=== PATIENT | male | born 1950 | race Caucasian/White ===

== ENCOUNTER 2016-09-24 16:39 | Observation (INO) | payer BC ==
[~2016-09-24] VITALS: Ht 182.9 cm; Wt 87.7 kg
[~2016-09-24 16:39] MED LIST: CEPH500C PO; CRAMP; HYDR12.58 PO; MELO-156 PO; OMEP20CA9 PO
--- NOTE | 2016-09-24 16:44 | PHYS DOC ---
Adult General Chief Complaint Chief Complaint: OTHER COMPLAINTS HPI HPI Patient is a 65 year old -[place] male who presents with abnormal EKG. According to patient he has a history of hypertension and diabetes with a family history of premature coronary disease in his 2 sisters and one of his parents. Approximately 1 week ago was mowing his yard had right substernal pressure that lasted about an hour and then resolved on its own. He was at his primary care office today and had an EKG done that showed ST elevations in V2, V3, V4 V5 and V6 in addition to 1 and aVL. He denies any chest pain shortness of breath nausea vomiting currently. He states he's had a similar episode 5 years ago before procedure with has postponed procedure due to stress test because of an EKG abnormality. Review of Systems Review of Systems Constitutional: Denies fever or chills [] Eyes: Denies change in visual acuity, redness, or eye pain [] HENT: Denies nasal congestion or sore throat [] Respiratory: Denies cough or shortness of breath [] Cardiovascular: No additional information not addressed in HPI [] GI: Denies abdominal pain, nausea, vomiting, bloody stools or diarrhea [] : Denies dysuria or hematuria [] Musculoskeletal: Denies back pain or joint pain [] Integument: Denies rash or skin lesions [] Neurologic: Denies headache, focal weakness or sensory changes [] Endocrine: Denies polyuria or polydipsia [] Current Medications Current Medications Current Medications Medications (Trade) Dose Ordered Sig/Noah Start Time Stop Time Status Last Admin Dose Admin Aspirin (Children'S Aspirin) 324 mg 1X ONCE 09/24/16 17:00 09/24/16 17:01 DC 09/24/16 17:05 324 MG Morphine Sulfate 2 mg PRN Q2HR PRN 09/24/16 19:00 09/25/16 18:59 UNV Nitroglycerin (Nitrostat) 0.4 mg PRN Q5MIN PRN 09/24/16 17:00 09/25/16 16:59 Ondansetron HCl (Zofran) 4 mg PRN Q8HRS PRN 09/24/16 19:00 09/25/16 18:59 UNV Allergies Allergies Allergies Coded Allergies Type Severity Reaction Last Updated Verified No Known Drug Allergies 03/12/14 No Physical Exam Physical Exam Constitutional: Well developed, well nourished, no acute distress, non-toxic appearance. [] HENT: Normocephalic, atraumatic, bilateral external ears normal, oropharynx moist, no oral exudates, nose normal. [] Eyes: PERRLA, EOMI, conjunctiva normal, no discharge. [] Neck: Normal range of motion, no tenderness, supple, no stridor. [] Cardiovascular:Heart rate regular rhythm, no murmur [] Lungs & Thorax: Bilateral breath sounds clear to auscultation [] Abdomen: Bowel sounds normal, soft, no tenderness, no masses, no pulsatile masses. [] Skin: Warm, dry, no erythema, no rash. [] Back: No tenderness, no CVA tenderness. [] Extremities: No tenderness, no cyanosis, no clubbing, ROM intact, no edema. [] Neurologic: Alert and oriented X 3, normal motor function, normal sensory function, no focal deficits noted. [] Psychologic: Affect normal, judgement normal, mood normal. [] Current Patient Data Vital Signs Vital Signs Date Time Temp Pulse Resp B/P Pulse Ox O2 Delivery O2 Flow Rate FiO2 09/24/16 17:49 72 139/88 98 Room Air 09/24/16 16:43 97.9 18 97.9 Lab Values Laboratory Tests Test 09/24/16 16:45 09/24/16 17:18 White Blood Count 5.3x10^3/uL (4.0-11.0) Red Blood Count 5.09x10^6/uL (4.30-5.70) Hemoglobin 15.2g/dL (13.0-17.5) Hematocrit 44.7% (39.0-53.0) Mean Corpuscular Volume 88fL (79-100) Mean Corpuscular Hemoglobin 30pg (25-35) Mean Corpuscular Hemoglobin Concent 34g/dL (31-37) Red Cell Distribution Width 13.4% (11.5-14.5) Platelet Count 197x10^3/uL (140-400) Neutrophils (%) (Auto) 47% (31-73) Lymphocytes (%) (Auto) 38% (24-48) Monocytes (%) (Auto) 11% (0-9) H Eosinophils (%) (Auto) 3% (0-3) Basophils (%) (Auto) 1% (0-3) Neutrophils # (Auto) 2.5x10^3uL (1.8-7.7) Lymphocytes # (Auto) 2.0x10^3/uL (1.0-4.8) Monocytes # (Auto) 0.6x10^3/uL (0.0-1.1) Eosinophils # (Auto) 0.2x10^3/uL (0.0-0.7) Basophils # (Auto) 0.0x10^3/uL (0.0-0.2) Prothrombin Time 11.8SEC (11.7-14.0) Prothrombin Time INR 0.9 (0.8-1.1) Sodium Level 137mmol/L (136-145) Potassium Level 3.6mmol/L (3.5-5.1) Chloride Level 102mmol/L (98-107) Carbon Dioxide Level 30mmol/L (21-32) Anion Gap 5 (6-14) L Blood Urea Nitrogen 16mg/dL (8-26) Creatinine 1.0mg/dL (0.7-1.3) Estimated GFR (Cockcroft-Gault) 75.2 Glucose Level 93mg/dL (70-99) Calcium Level 9.4mg/dL (8.5-10.1) Magnesium Level 1.8mg/dL (1.8-2.4) Total Bilirubin 0.3mg/dL (0.2-1.0) Direct Bilirubin 0.1mg/dL (0.0-0.2) Aspartate Amino Transferase (AST) 23U/L (15-37) Alanine Aminotransferase (ALT) 31U/L (16-63) Alkaline Phosphatase 52U/L (46-116) Creatine Kinase 151U/L (39-308) Creatine Kinase MB (Mass) 1.8ng/mL (0.0-3.6) Creatine Kinase MB Relative Index 1.2% (0-4) Troponin I Quantitative < 0.017ng/mL (0.000-0.055) HQ-Ttm-V-Type Natriuretic Peptide 57pg/mL (0-124) Total Protein 7.7g/dL (6.4-8.2) Albumin 4.1g/dL (3.4-5.0) Lipase 165U/L (73-393) Thyroid Stimulating Hormone (TSH) 3.880uIU/mL (0.358-3.74) H Urine Collection Type Unknown Urine Color Yellow Urine Clarity Clear Urine pH 6.5 Urine Specific [place] 1.015 Urine Protein Negativemg/dL (NEG-TRACE) Urine Glucose (UA) Negativemg/dL (NEG) Urine Ketones (Stick) Negativemg/dL (NEG) Urine Blood Negative (NEG) Urine Nitrite Negative (NEG) Urine Bilirubin Negative (NEG) Urine Urobilinogen Dipstick 1.0mg/dL (0.2 mg/dL) Urine Leukocyte Esterase Negative (NEG) Urine RBC 0/HPF (0-2) Urine WBC 0/HPF (0-4) Urine Squamous Epithelial Cells Occ/LPF Urine Bacteria 0/HPF (0-FEW) Urine Mucus Slight/LPF Urine Opiates Screen Neg (NEG) Urine Methadone Screen Neg (NEG) Urine Barbiturates Neg (NEG) Urine Phencyclidine Screen Neg (NEG) Urine Amphetamine/Methamphetamine Neg (NEG) Urine Benzodiazepines Screen Neg (NEG) Urine Cocaine Screen Neg (NEG) Urine Cannabinoids Screen Neg (NEG) Urine Ethyl Alcohol Neg (NEG) Laboratory Tests 09/24/16 16:45 Laboratory Tests 09/24/16 16:45 EKG EKG EKG shows sinus rhythm with rate 75 bpm with mild elevations in 1 and aVL, no T- wave inversions appreciated, and axis deviation, QTC 398 ms, as interpreted by me. Radiology/Procedures Radiology/Procedures View chest x-ray did not show any focal consolidations, bony abnormalities, pneumothorax, as interpreted by me. Impressions: Abnormal EKG Course & Med Decision Making Course & Med Decision Making Pertinent Labs and Imaging studies reviewed. (See chart for details) He has a worrisome EKG that has changed from Dr. De Los Santos's office to the ER. He did have chest discomfort when he was mowing his yard several days ago he denies any discomfort or pain currently however he needs to have a cardiology consultation and a stress test. He has 2 sisters he's had coronary disease recently in addition to his parents. He is agreeable plan be admitted to Dr. Aguirre with cardiology consultation. He was given a full dose aspirin. Dragon Disclaimer Dragon Disclaimer This electronic medical record was generated, in whole or in part, using a voice recognition dictation system. Departure Departure Impression: Primary Impression: Abnormal EKG Disposition: ADMITTED INPATIENT Admitting Physician: Myra Aguirre Condition: STABLE BERNADETTE BARTON MD Sep 24, 2016 16:44
[2016-09-24 16:55] LABS: BASO % 1 % (0-3); EOS % 3 % (0-3); HEMATOCRIT 44.7 % (39.0-53.0); HEMOGLOBIN 15.2 g/dL (13.0-17.5); LYMPH % 38 % (24-48); MEAN CORPUSCULAR HEMOGLOBIN 30 pg (25-35); MEAN CORPUSCULAR HGB CONC 34 g/dL (31-37); MEAN CORPUSCULAR VOLUME 88 fL (79-100); MONO % 11 % (0-9); NEUT % 47 % (31-73); PLATELET COUNT 197 x10^3/uL (140-400); RED BLOOD COUNT 5.09 x10^6/uL (4.30-5.70); RED CELL DISTRIBUTION WIDTH 13.4 % (11.5-14.5); WHITE BLOOD COUNT 5.3 x10^3/uL (4.0-11.0)
[2016-09-24] MEDS ORDERED: ASPIRIN CHEWABLE 81 MG TABLET. PO ONE (17:00)
[2016-09-24] MEDS ORDERED: NITROGLYCERIN SUBLINGUAL 0.4 MG BOTTLE OF 25. SL PRN (17:00)
[2016-09-24] MEDS ORDERED: MORPHINE SULFATE 2 MG/ML DISP.SYRIN. IV/SQ PRN (17:00)
[2016-09-24 17:05] LABS: INR 0.9 (0.8-1.1); PROTHROMBIN TIME PATIENT 11.8 SEC (11.7-14.0)
[2016-09-24 17:11] LABS: CALCIUM 9.4 mg/dL (8.5-10.1); GFR 75.2; POTASSIUM 3.6 mmol/L (3.5-5.1)
[2016-09-24 17:18] LABS: ALBUMIN 4.1 g/dL (3.4-5.0); DIRECT BILIRUBIN 0.1 mg/dL (0.0-0.2); MAGNESIUM 1.8 mg/dL (1.8-2.4); TOTAL BILIRUBIN 0.3 mg/dL (0.2-1.0); TOTAL PROTEIN 7.7 g/dL (6.4-8.2)
[2016-09-24 17:25] LABS: BILIRUBIN,URINE NEGATIVE (NEG); GLUCOSE,URINE NEGATIVE (NEG); NITRITE,URINE NEGATIVE (NEG); PH,URINE 6.5; PROTEIN,URINE NEGATIVE (NEG-TRACE)
[2016-09-24 17:26] LABS: CKMB INDEX 1.2 % (0-4); CKMB MASS 1.8 ng/mL (0.0-3.6)
[2016-09-24 17:37] LABS: BACTERIA,URINE 0 /HPF (0-FEW); RBC,URINE 0 /HPF (0-2); SQUAMOUS EPITHELIAL CELL,UR OCC /LPF; WBC,URINE 0 /HPF (0-4)
[2016-09-24 17:43] LABS: BARBITURATES NEG (NEG); BENZODIAZEPINES NEG (NEG); CANNABINOIDS NEG (NEG); COCAINE NEG (NEG); ETHANOL, URINE NEG (NEG); METHADONE NEG (NEG); OPIATES NEG (NEG); PHENCYCLIDINE NEG (NEG)
[2016-09-24] MEDS ORDERED: MORPHINE SULFATE 2 MG/ML DISP.SYRIN. IV PRN (19:00)
[2016-09-24] MEDS ORDERED: ONDANSETRON PF 4 MG/2 ML VIAL. IV PRN (19:00)
--- NOTE | 2016-09-24 19:19 | ACF ---
Admission Forms Criteria CARDIOLOGY GRG Clinical Indications for Admission to Inpatient Care ( Place 'X' for any and all applicable criteria): Hospital admission is needed for appropriate care of the patient because of ANY ONE of the following (1): [ ] I. Hemodynamic instability as indicated by ALL of the following (1)(2)(3) (4)(5) [ ]a) Vital signs or other findings not as expected for chronic patient condition or baseline [ ]b) Instability indicated by ANY ONE of the following: [ ]i) Hypotension [ ]ii) Symptomatic Tachycardia unresponsive to treatment ( e.g., analgesia, fluids, sedation as indicated) [ ]iii) Inadequate perfusion indicated by ANY ONE of the following: [ ] 1) Lactic acidosis (> 2 mmol/L) [ ] 2) New abnormal capillary refill (> 3 seconds) [ ] 3) Reduced urine output [ ] 4) New altered mental status [ ]iv) Orthostatic vital sign changes unresponsive to treatment (e.g., fluids) [ ]v) IV inotropic or vasopressor medication required to maintain adequate blood pressure or perfusion [ ] II. Severe heart failure as indicated by ANY ONE of the following(17)(18) [ ]a) Respiratory distress [ ]b) Hypotension [ ]c) Anasarca (refractory to outpatient therapy) [ ]d) Cardiac arrhythmias of immediate concern [ ]e) Myocardial ischemia [ ] III. Cardiac arrhythmias or findings of immediate concern indicated by ANY ONE of the following (19)(20): [ ] a) Heart rhythms that are inherently dangerous or unstable indicated by ANY ONE of the following (21)(22)(23): [ ] i) Resuscitated ventricular fibrillation or cardiac arrest [ ] ii) Ventricular escape rhythm [ ] iii) Sustained ventricular tachycardia (30 seconds or more of ventricular rhythm at greater than 100 beats per minute) [ ] iv) Nonsustained ventricular tachycardia and ANY ONE of the following: [ ] 1) Suspected cardiac ischemia as cause or consequence of ventricular tachycardia [ ] 2) In setting of acute myocarditis [ ] b) Unstable cardiac conduction defects indicated by ANY ONE of the following(23)(24)(25) [ ] i) Type II second-degree atrioventricular block [ ]ii) Third-degree atrioventricular block [ ]iii) New-onset left bundle branch block with suspected myocardial ischemia [ ]c) Any heart rhythm and ANY ONE of the following (21)(22)(26)(27) (28) [ ] i) Continuous long-term ECG monitoring needed (e.g., initiation of drug requiring monitoring for more than 24 hours) [ ] ii) Patient has automatic implanted cardioverter defibrillator that is repeatedly firing, malfunctioning, or in need of immediate adjustment of settings beyond the scope of ambulatory or observation care [ ]d) Heart rhythms of concern due to ANY ONE of the following: [ ] i) Hypotension [ ] ii) Respiratory distress [ ] iii) Association with other significant symptoms (e.g., bradycardia with syncope or ongoing dizziness, supraventricular tachycardia with chest pain (14)(15)(17) [ ] IV. Monitoring for cardiac contusion beyond the scope of observation care needed [A](30)(31)(32) [ ] V. Surgical or device complication (e.g., valve replacement complication , pacemaker dysfunction) (35)(41)(44)(45)(46) [ ] . Inpatient palliative care needed. [B](49) Also use Inpatient Palliative Care Criteria [ ] VII. Nonbacterial thrombotic (marantic) endocarditis (36)(43)(47)(48) [X] VIII. Cardiology condition, symptom, or finding for which emergency and observation care has failed or are not considered appropriate. [ ] IX. Acute valvular disease requiring inpatient as indicated by ANY ONE of the following (41) [ ]a) Acute valvular regurgitation (42) [ ]b) Noninfectious valvulitis (43) [ ]c) Obstructive valve thrombosis [ ]d) Paravalvular leak [ ]e) Other significant valvular disorder remaining after emergency or observation level of care (as appropriate) [ ]X. Pericardial disease requiring inpatient treatment as indicated by ANY ONE of the following (33)(34)(35)(36)(37) [ ]a) Suspected tamponade (38)(39)(40) [ ]b) Hemopericardium [ ]c) Other significant pericardial disorder remaining after emergency or observation level of care (as appropriate) [ ] XI. Cardiac ischemia beyond scope of emergency and observation care. [ ] XII. Hypertension requiring inpatient treatment as indicated by ANY ONE of the following (6)(7)(8) [ ]a) SBP greater than 220 mm Hg or DBP greater than 120 mmHg despite treatment [ ]b) SBP greater than 140 mm Hg or DBP greater than 100 mm Hg with evidence of acute end organ damage as indicated by ANY ONE of the following [ ] i) Encephalopathy [ ] ii) Acute renal failure as indicated by new onset of ANY ONE of the following (9)(10)(11)(12)(13) [ ]1) 3-fold rise in serum creatinine from baseline [ ]2) Serum creatinine greater than 4 mg/dL ( 354 micromoles/L) with acute rise greater than 0.5 mg/dL (44.2 micromoles/L) [ ]3) Reduction of more than 75% in estimated glomerular filtration rate from baseline [ ]4) Estimated glomerular filtration rate less than 35 mL/min/1.73m2 (0.59 mL/sec/1.73m2) in child up to 18 years of age [ ]5) Cessation of urine output indicated by ALL of the following [ ]A. Adequate volume status [ ]B. Inadequate urine output as indicated by ANY ONE of the following [ ]a. Urine output less than 0.3 mL/kg/hr for 24 hours [ ]b. Anuria (urine output less than 0.1 mL/kg/hr) for 12 hours [ ] iii) Aortic dissection [ ] iv) Myocardial Ischemia [ ] v) Left ventricular heart failure [ ]vi) Retinal Hemorrhage [ ]vii) Other significant finding [ ]c) Hypertension in child requiring inpatient treatment as indicated by ALL of the following(14)(15)(16) [ ] i) Outpatient treatment not effective, not available, or not appropriate [ ]ii) SBP or DBP greater than 95th percentile for age [ ]iii) Evidence of acute end organ damage as indicated by ANY ONE of the following [ ]1) Altered mental status [ ]2) Acute renal failure as indicated by new onset of ANY ONE of the following(9)(10)(11)(12)(13) [ ]A. 3-fold rise in serum creatinine from baseline [ ]B. Serum creatinine greater than 4 mg/dL (354 micromoles/L) with acute rise greater than 0.5 mg/dL (44.2 micromoles/L) [ ]C. Reduction of more than 75% in estimated glomerular filtration rate from baseline [ ]D. Estimated glomerular filtration rate less than 35 mL/min/1.73m2 (0.59 mL/sec/1.73m2) in child up to 18 years of age [ ]E. Cessation of urine output indicated by ALL of the following [ ]a. Adequate volume status [ ]b. Inadequate urine output as indicated by ANY ONE of the following [ ]i) Urine output less than 0.3 mL/kg/hr for 24 hours [ ]ii) Anuria ( urine output less than 0.1 mL/kg/hr) for 12 hours [ ]3) Severe headache [ ]4) Visual disturbance [ ]5) Retinal hemorrhage [ ]6) Other significant finding [ ]XIII. Complications of transplanted heart indicated by ANY ONE of the following(61): [ ]a) Acute graft rejection requiring inpatient management (eg, intravenous immunosuppression)(62)(63) [ ]b) Acute graft heart failure indicated by ANY ONE of the following(64): [ ]i) Hemodynamic instability [ ]ii) Cardiac arrhythmias of immediate concern [ ]iii) Pulmonary edema that is very severe (eg, mechanical ventilation needed, imminent or likely, need for 100% oxygen to keep oxygen saturation above 90%) [ ]iv) Pulmonary edema that is persistent as indicated by ALL of the following: [ ]1) New need for oxygen therapy to keep oxygen saturation above 90% (or increased FiO2 need from baseline) [ ]2) Has not improved sufficiently with emergency department or observation care IV diuretics or other heart failure treatments[E] [ ]v) Altered mental status that is severe or persistent [ ]vi) Increased creatinine (new on laboratory test) with reduction of more than 50% in estimated glomerular filtration rate from baseline [ ]vii) Progressively (ongoing) rising creatinine (known from past laboratory test) with reduction of more than 25% in estimated glomerular filtration rate from baseline [ ]viii) Acute renal failure [ ]ix) Acute peripheral ischemia (eg, examination shows pulseless, cool, mottled, or cyanotic extremity) [ ]x) Pulmonary artery catheter monitoring needed [ ]xi) Other sign or symptom of heart failure requiring inpatient treatment (ie, too severe or not responsive to outpatient and observation care treatment) [ ]c) Infection requiring inpatient management (eg, Hemodynamic instability, need for intravenous antimicrobial treatment)(66)(67)(68)(69)(70) [ ]d) Cardiac allograft vasculopathy requiring inpatient management ( eg evidence of cardiac ischemia)(71) [ ]e) Other complication of transplanted heart (eg, stroke, severe pulmonary hypertension, severe valvular dysfunction) requiring inpatient management(72) The original [facility] content created by [facility] has been revised. The portions of the content which have been revised are identified through the use of italic text or in bold, and [facility] has neither reviewed nor approved the modified material. All other unmodified content is copyright [facility]. Please see references footnoted in the original [facility] edition 2016 Admission Criteria Met?: Yes SHANKAR CASTELLANOS Sep 24, 2016 19:19
[2016-09-24 21:00] VITALS: BP 125/76
[2016-09-24 23:50] VITALS: BP 110/65
[2016-09-25] MEDS ORDERED: METF500T4 PO (02:30)
[2016-09-25 03:00] VITALS: BP 127/81
--- NOTE | 2016-09-25 06:04 | EKG ---
[facility] [address] [place] [address] Test Date: 2016-09-24 Test Time: 16:48:09 Pat Name: PHIL BRAY Department: Room: 263 1 Gender: M Senior Product Development Manager: : 1950 Requested By: BERNADETTE BARTON Order Number: [id number] Reading MD: Marvin Bautista Measurements Intervals [place] Rate: 75 P: 34 DE: 236 QRS: -10 QRSD: 78 T: 14 QT: 354 QTc: 398 Interpretive Statements SINUS RHYTHM PROLONGED DE INTERVAL NON-SPECIFIC ST/T CHANGES Electronically Signed On 09-25-2016 17:57:01 CDT by Marvin Bautista
[2016-09-25 07:23] LABS: BASO % 0 % (0-3); EOS % 4 % (0-3); HEMATOCRIT 46.1 % (39.0-53.0); HEMOGLOBIN 15.2 g/dL (13.0-17.5); LYMPH # 1.1 x10^3/uL (1.0-4.8); LYMPH % 34 % (24-48); MEAN CORPUSCULAR HEMOGLOBIN 30 pg (25-35); MEAN CORPUSCULAR HGB CONC 33 g/dL (31-37); MEAN CORPUSCULAR VOLUME 90 fL (79-100); MONO % 12 % (0-9); NEUT % 50 % (31-73); PLATELET COUNT 166 x10^3/uL (140-400); RED BLOOD COUNT 5.14 x10^6/uL (4.30-5.70); RED CELL DISTRIBUTION WIDTH 13.4 % (11.5-14.5); WHITE BLOOD COUNT 3.2 x10^3/uL (4.0-11.0)
[2016-09-25 07:36] LABS: CALCIUM 9.5 mg/dL (8.5-10.1); GFR 75.2; POTASSIUM 4.1 mmol/L (3.5-5.1)
[2016-09-25 07:58] VITALS: BP 114/84
--- NOTE | 2016-09-25 08:05 | RAD ---
Exam: AP portable chest. History: Chest pain. Comparison: 09/21/2011. Findings: The heart and mediastinal structures are within normal limits for size. Lungs are without infiltrate. No pneumothorax or pleural effusion is appreciated. Bilateral shoulder degeneration is seen. Impression: 1. No acute cardiopulmonary process.
--- NOTE | 2016-09-25 09:58 | PDOC2 ---
MARLENE WASHINGTON MIMEOGRAPH OPERATOR 09/25/16 0958: CARDIAC CONSULT DATE OF CONSULT Date of Consult DATE: 09/25/16 TIME: 09:52 REASON FOR CONSULT Reason for Consult: Abnormal EKG REFERRING PHYSICIAN Referring Physician: Dr. Sanabria SOURCE Source: Chart review, Patient HISTORY OF PRESENT ILLNESS HISTORY OF PRESENT ILLNESS This is a 65 yo male who presented secondary to an abnormal EKG. Patient was seen by primary care provider with complaints of chest pain. Patient reports pain has been ongoing for the last year or so. Located in his right chest. Describes as a soreness. Non-radiating. Reports pain generally occurs upon awakening and generally resolves without intervention after an hour or so. No exacerbating factors. Not brought on by exertional activities. Tong any associated dizziness, diaphoresis, palpitations, or nausea/vomiting. Does reports feeling SOA upon awakening and has had some mild WOODS over the last 6 months. Does reports having normal MPI prior to hip surgery 5 year ago. Does report having had an abnormal EKG in the past. No prior WES workup. PAST MEDICAL HISTORY Cardiovascular: HTN Pulmonary: No pertinent hx CENTRAL NERVOUS SYSTEM: Vertigo GI: GERD Heme/Onc: No pertinent hx Hepatobiliary: No pertinent hx Psych: No pertinent hx Musculoskeletal: Osteoarthritis Infectious disease: No pertinent hx ENT: No pertinent hx Renal/: No pertinent hx Endocrine: Diabetes PAST SURGICAL HISTORY Past Surgical History: Hernia Repair, Total hip replacement (right ) FAMILY HISTORY Family History: Coronary Artery Disease (mother, sisters ), Diabetes, Hypertension SOCIAL HISTORY Smoke: No ALCOHOL: occassional Drugs: None Lives: with Family CURRENT MEDICATIONS CURRENT MEDICATIONS Current Medications Medications (Trade) Dose Ordered Sig/Noah Route PRN Reason Start Time Stop Time Status Last Admin Dose Admin Aspirin (Children'S Aspirin) 324 mg 1X ONCE PO 09/24/16 17:00 09/24/16 17:01 DC 09/24/16 17:05 ALLERGIES ALLERGIES: Coded Allergies: No Known Drug Allergies (Unverified , 03/12/14) ROS Review of System 14 point ROS conducted with pertinent positives noted above in HPI PHYSICAL EXAM General: Alert, Oriented X3, Cooperative, No acute distress HEENT: Atraumatic, Mucous membr. moist/pink Lungs: Clear to auscultation, Normal air movement Heart: Regular rate, Normal S1, Normal S2 Abdomen: Soft, No tenderness Extremities: No edema, Normal pulses Skin: No breakdown, No significant lesion Neuro: Normal speech, Sensation intact Psych/Mental Status: Mental status NL, Mood NL MUSCULOSKELETAL: Osteoarthritic changes both hands VITALS VITALS Vital Signs Date Time Temp Pulse Resp B/P Pulse Ox O2 Delivery O2 Flow Rate FiO2 09/25/16 07:58 97.9 66 16 114/84 93 Room Air 97.9 LABS Lab: Laboratory Tests Test 09/24/16 16:45 09/24/16 17:18 09/25/16 01:00 09/25/16 07:05 White Blood Count 5.3x10^3/uL (4.0-11.0) 3.2x10^3/uL (4.0-11.0) Red Blood Count 5.09x10^6/uL (4.30-5.70) 5.14x10^6/uL (4.30-5.70) Hemoglobin 15.2g/dL (13.0-17.5) 15.2g/dL (13.0-17.5) Hematocrit 44.7% (39.0-53.0) 46.1% (39.0-53.0) Mean Corpuscular Volume 88fL (79-100) 90fL (79-100) Mean Corpuscular Hemoglobin 30pg (25-35) 30pg (25-35) Mean Corpuscular Hemoglobin Concent 34g/dL (31-37) 33g/dL (31-37) Red Cell Distribution Width 13.4% (11.5-14.5) 13.4% (11.5-14.5) Platelet Count 197x10^3/uL (140-400) 166x10^3/uL (140-400) Neutrophils (%) (Auto) 47% (31-73) 50% (31-73) Lymphocytes (%) (Auto) 38% (24-48) 34% (24-48) Monocytes (%) (Auto) 11% (0-9) 12% (0-9) Eosinophils (%) (Auto) 3% (0-3) 4% (0-3) Basophils (%) (Auto) 1% (0-3) 0% (0-3) Neutrophils # (Auto) 2.5x10^3uL (1.8-7.7) 1.6x10^3uL (1.8-7.7) Lymphocytes # (Auto) 2.0x10^3/uL (1.0-4.8) 1.1x10^3/uL (1.0-4.8) Monocytes # (Auto) 0.6x10^3/uL (0.0-1.1) 0.4x10^3/uL (0.0-1.1) Eosinophils # (Auto) 0.2x10^3/uL (0.0-0.7) 0.1x10^3/uL (0.0-0.7) Basophils # (Auto) 0.0x10^3/uL (0.0-0.2) 0.0x10^3/uL (0.0-0.2) Prothrombin Time 11.8SEC (11.7-14.0) Prothromb Time International Ratio 0.9 (0.8-1.1) Sodium Level 137mmol/L (136-145) 138mmol/L (136-145) Potassium Level 3.6mmol/L (3.5-5.1) 4.1mmol/L (3.5-5.1) Chloride Level 102mmol/L (98-107) 103mmol/L (98-107) Carbon Dioxide Level 30mmol/L (21-32) 31mmol/L (21-32) Anion Gap 5 (6-14) 4 (6-14) Blood Urea Nitrogen 16mg/dL (8-26) 16mg/dL (8-26) Creatinine 1.0mg/dL (0.7-1.3) 1.0mg/dL (0.7-1.3) Estimated GFR (Cockcroft-Gault) 75.2 75.2 Glucose Level 93mg/dL (70-99) 109mg/dL (70-99) Calcium Level 9.4mg/dL (8.5-10.1) 9.5mg/dL (8.5-10.1) Magnesium Level 1.8mg/dL (1.8-2.4) Total Bilirubin 0.3mg/dL (0.2-1.0) Direct Bilirubin 0.1mg/dL (0.0-0.2) Aspartate Amino Transf (AST/SGOT) 23U/L (15-37) Alanine Aminotransferase (ALT/SGPT) 31U/L (16-63) Alkaline Phosphatase 52U/L (46-116) Creatine Kinase 151U/L (39-308) Creatine Kinase MB (Mass) 1.8ng/mL (0.0-3.6) Creatine Kinase MB Relative Index 1.2% (0-4) Troponin I Quantitative < 0.017ng/mL (0.000-0.055) < 0.017ng/mL (0.000-0.055) < 0.017ng/mL (0.000-0.055) TH-Hdr-U-Type Natriuretic Peptide 57pg/mL (0-124) Total Protein 7.7g/dL (6.4-8.2) Albumin 4.1g/dL (3.4-5.0) Lipase 165U/L (73-393) Thyroid Stimulating Hormone (TSH) 3.880uIU/mL (0.358-3.74) Urine Collection Type Unknown Urine Color Yellow Urine Clarity Clear Urine pH 6.5 Urine Specific [place] 1.015 Urine Protein Negativemg/dL (NEG-TRACE) Urine Glucose (UA) Negativemg/dL (NEG) Urine Ketones (Stick) Negativemg/dL (NEG) Urine Blood Negative (NEG) Urine Nitrite Negative (NEG) Urine Bilirubin Negative (NEG) Urine Urobilinogen Dipstick 1.0mg/dL (0.2 mg/dL) Urine Leukocyte Esterase Negative (NEG) Urine RBC 0/HPF (0-2) Urine WBC 0/HPF (0-4) Urine Squamous Epithelial Cells Occ/LPF Urine Bacteria 0/HPF (0-FEW) Urine Mucus Slight/LPF Urine Opiates Screen Neg (NEG) Urine Methadone Screen Neg (NEG) Urine Barbiturates Neg (NEG) Urine Phencyclidine Screen Neg (NEG) Urine Amphetamine/Methamphetamine Neg (NEG) Urine Benzodiazepines Screen Neg (NEG) Urine Cocaine Screen Neg (NEG) Urine Cannabinoids Screen Neg (NEG) Urine Ethyl Alcohol Neg (NEG) ASSESSMENT/PLAN ASSESSMENT/PLAN 1. Chest pain, atypical 2. Hypertension 3. Diabetes 3. GERD Recommendations Troponin series normal- AMU ruled out. ASA, check lipid EKG without significant acute changes Chest pain atypical, but given significant risk factors and family h/o CAD, will proceed with MPI to r/o ischemia Pain possibly GI in nature. BP well-controlled Management of DM per PCP Problems: PRIYA GALVEZ MD 09/25/16 2020: CARDIAC CONSULT ALLERGIES ALLERGIES: Coded Allergies: No Known Drug Allergies (Unverified , 03/12/14) ASSESSMENT/PLAN ASSESSMENT/PLAN Patient seen and examined. Agree with UNIT REACTOR OPERATOR's assessment and plan. CP with atypical features and most probably GI etiology. WA ruled out. MPI negative for ischemia. OK for DC from cardiac standpoint. Thank you for your consultation. Problems: MARLENE WASHINGTON APRN Sep 25, 2016 09:58 PRIYA GALVEZ MD Sep 25, 2016 20:20
[2016-09-25 10:44] LABS: CHOLESTEROL/HDL RATIO 3.1
[2016-09-25 10:58] VITALS: BP 121/84
[2016-09-25] MEDS ORDERED: REGADENOSON 0.4 MG/5 ML DISP.SYRIN. IV ONE (11:30)
--- NOTE | 2016-09-25 14:58 | RAD ---
APPROVED REPORT Test Type: Pharmacological Stress Nurse/Tech: Savannah Mendieta RN Test Indications: chest pain Cardiac History: see ehr Medications: see ehr Medical History: see ehr Resting ECG: SR Resting Heart Rate: 64 bpm Resting Blood Pressure: 128/82mmHg Pretest Chest Pain: None Nurse/Tech Notes Lungs CTA, S1, S2 Consent: The procedure was explained to the patient in lay terms. Informed consent was witnessed. Helder eout was entered into Doorm[facility].. History and Stress Test performed by [facility] DixonNSoraya Pharm. Details Pharmacologic stress testing was performed using 0.4mg per 5ml of regadenoson given intravenously ove r 7-10 seconds. Stress Symptoms No chest pain or symptoms. POST EXERCISE Reason for Termination: Infusion complete Max HR: 121 bpm Max Blood Pressure: 134/81mmHg Blood Pressure response to exercise: Normal blood pressure response during stress. Chest Pain: No. Arrhythmia: No. ST Change: No. INTERPRETATION Stress EKG Conclusion: No acute changes were noted. There is diffuse MARCE suggestive of pericarditis. Imaging Protocol IMAGE PROTOCOL: Rest Tc-99m/stress Tc-99m 1 day Rest: Stress: Viability: Radiopharm.Tc99m [id number] Sestamibi Dose10.3mCi 31.5mCi Duration 15min. 10min. Img Date 09/25/2016 09/25/2016 Inj-Img [id number]. 60min. Rest Admin Site:IV - Right AntecubitalAdministrator:RAVEN Denise Stress Admin Site: IV - Right AntecubitalAdministrator: RAVEN Denise STRESS DATA End Diast. Vol.76.0mlAv. Heart Rate77.0bpm End Syst. Vol.20.0mlCO Index BSA0.0L/min Myocardial Bllb541.0gEject. Haagxnnr78.0% Stress Rates Pk. Fill Rate3.26EDV/secLVtime Pk. Fill 202.75msec Pk. Empty Rate3.78ESV/secLVtime Pk. Lrwnm379.55msec 06/02 Pk. Fill0.50EDV/sec Stress Scores Regional WT0.00Summed WT1.00 Regional WM0.00Summed WM1.00 The rest and stress images show normal perfusion, normal contraction and thickening. LV Perf. Quant 17 Seg. SSS0.00 17 Seg. SRS0.00 17 Seg. SDS0.00 Stress Defect Extent (% LAD)0.00Rest Defect Extent (% LAD)0.00Rev. Defect Extent (% LAD)0.00 Stress Defect Extent (% LCX) 0.00Rest Defect Extent (% LCX)0.00Rev. Defect Extent (% LCX)0.00 Stress Defect Extent (% RCA)0.00Rest Defect Extent (% RCA)0.00Rev. Defect Extent (% RCA)0.00 Stress Defect Extent (% KEO)0.00Rest Defect Extent (% KEO)0.00Rev. Defect Extent (% KEO)0.00 Other Information Quality:Average Risk Assessment: Low Risk Conclusion 1. No evidence of stress induced ischemic changes on EKG. Baseline EKG with diffuse ST elevation sugg estive of pericarditis. (Clinical correlation recommended) 2. Normal perfusion at stress/rest. EF > 60% 3. Low risk study
[2016-09-25 15:39] VITALS: BP 113/69
[2016-09-25] MEDS ORDERED: ASPI325T4 PO (17:39)
--- NOTE | 2016-09-25 17:52 | PDOC ---
Provider Note Provider Note combined H&P and discharge summary dictated # [id number] abnormal EKG, acute pericarditis, low risk stress MPI with normal EF. Start aspirin 325 mg and will check outpatient lab for lupus, lyme disease, viruses. F/u next week in office, repeat EKG then. He may return to work Wednesday but rest over GUSTAVO GUZMAN MD Sep 25, 2016 17:52
--- NOTE | 2016-09-25 18:53 | HP ---
ADMIT DATE: 09/24/2016 ADMISSION HISTORY AND PHYSICAL AND DISCHARGE SUMMARY COMBINED NOTE ADMISSION DIAGNOSIS: Abnormal electrocardiogram. DISCHARGE DIAGNOSIS: Pericarditis, acute. HISTORY OF PRESENT ILLNESS: This is a 65-year-old -[place] male who came to the office yesterday with some really vague symptoms including some right-sided chest pain, fatigue, and some general malaise. He had been able to cut his grass the last previous weekend, but it was more of an effort than unusual. During his office visit today, EKG was done showing ST segment elevation. His history did not really fit with an acute cardiac event and his chest pain was somewhat atypical, but he was sent down over to the Emergency Room by private vehicle, where he was seen and evaluated and subsequently admitted. His serial troponins have been unremarkable, but a stress MPI is consistent with pericarditis. He has been seen in cardiac consultation. PAST MEDICAL HISTORY: Significant for prior cardiac workup for hypertension, for colon polyps, GERD, osteoarthritis with degenerative back changes, type 2 diabetes. PAST SURGICAL HISTORY: Include inguinal hernia repair left groin, right total hip in 2011, prior left wrist surgery, and a cyst removal from his back. ALLERGIES: He has no known drug allergies. HOME MEDICATIONS: Include hydrochlorothiazide 12.5 mg daily, metformin 500 b.i.d. with meals and an ihoy-lmo-[id number] medicine for leg cramps. FAMILY HISTORY: Denies family history of lupus. SOCIAL HISTORY: No significant tobacco use history. He is . His is present. REVIEW OF SYSTEMS: HEENT: He has had some mild viral type symptoms, but no sore throat. No earache. No vision change. No sinus pain or pressure. CARDIAC: As above. PULMONARY: Some mild fatigue with activity, but no cough or wheezing. ABDOMEN: No nausea, vomiting, or change in bowels. GENITOURINARY: No change in his urinary habits. MUSCULOSKELETAL: Back pain aggravated by positions at work and causes him to frequently change position. He has also had some knee discomfort, but no effusions. SKIN: Negative for rashes or infections, negative for fever. He is unaware of any tick bites and has no history of Lyme disease. LABORATORY DATA: His white count yesterday 5.3 dropped to 3.2 today, but otherwise his CBC is unremarkable. He does have an increase in his monocytes and EOS, though unclear significance. INR was 0.9. Chemistries are pretty unremarkable. His glucose was 109, but his troponins negative at 0.017. His LDL cholesterol is a little elevated at 110, but his cholesterol is 179, triglycerides are 61. His HDL is 57. TSH is borderline high at 3.88. Lipase was normal. Liver enzymes normal and the renal function is normal. His magnesium is normal. Creatinine kinase was normal as were his enzymes. BNP was normal. EKG showed ST segment elevation and a mild bundle branch block. Chest x-ray showed heart and mediastinal structures within normal limits. Lungs without infiltrates. Bilateral shoulder degeneration was noted. Nuclear medicine scanning showed no evidence of stress induced ischemic changes on EKG. His baseline EKG showed diffuse ST elevation suggestive of pericarditis. He had a normal perfusion at stress and rest with an ejection fraction of greater than 60%, was considered a low-risk study. ASSESSMENT: Abnormal electrocardiogram consistent with pericarditis, stress test negative for coronary artery disease. Enzymes negative for acute coronary syndrome. There is no family history of lupus. There is no history of Lyme disease or tick exposure. He has had some vague symptoms recently. Plan: He will be discharged home on 325 mg aspirin daily plus his home medicines. His diabetes is well controlled. His blood pressure is well controlled; those meds will be continued. He will follow up in the office next week. EKG will be repeated. Sed rate, ALINA, and Lyme titer will be checked. He will be off work this weekend and rest and take things easy and should be able to return to work on Wednesday. He does have some degeneration in the shoulders on his chest x-ray. He has some known degeneration in his lumbar back, changing his chair and posture at work may benefit that, further evaluation of that as an outpatient. W Binta GUZMAN MD DR: REZA/bri JOB#: [id number] / [id number]
== END 2016-09-25 18:35 | disposition home or self-care (01) ==
LOC: ER 16:39 → 2 SOUTH 18:45
PROVIDERS: ADMIT Family Medicine; ATTEND Family Medicine
DX: R07.89 Other chest pain (principal); I10 Essential (primary) hypertension; K21.9 Gastro-esophageal reflux disease without esophagitis; M19.90 Unspecified osteoarthritis, unspecified site; E11.9 Type 2 diabetes mellitus without complications; I30.9 Acute pericarditis, unspecified; Z96.641 Presence of right artificial hip joint; Z83.3 Family history of diabetes mellitus; Z82.49 Family history of ischemic heart disease and other diseases of the circulatory system
CPT/HCPCS: 36415; 71010; 78452; 80048; 80061; 80076; 81001; 82553; 82947; 83690; 83735; 83880; 84443; 84484; 85027; 85610; 93005; 93017; 99285; A9500; G0378; G0481; J2785; 96374; 96375; 96376; G0379

== ENCOUNTER → 2017-04-26 | Outpatient (CLI) | payer BC ==
[~2017-04-26] MED LIST changes: +ASPI325T8 PO; +IOHEXOL 240 MG/ML 50ML VIAL. PO ONE; +IOHEXOL 300 MG/ML 100ML VIAL. IV ONE; -MELO-156 PO; +MELO7.5T29 PO; +METF500T4 PO
--- NOTE | 2017-04-26 15:49 | RAD ---
CT of the abdomen and pelvis with contrast, 04/26/2017: History: Abdominal bloating. Multidetector CT imaging was performed following oral and IV administration of contrast. Comparison is made to a study from 08/15/2010. No hepatic mass or bile duct dilatation is evident. The gallbladder is unremarkable. No pancreatic abnormality is detected. The spleen is of normal size. No renal or adrenal abnormality is detected. There is mild aortoiliac calcific plaquing. No abdominal or pelvic adenopathy is seen. Artifacts arising from a right hip prosthesis degrade image quality in the lower pelvis. The prostate gland is not clearly defined but appears to be at the upper limits of normal in size. The bowel loops are not dilated. The appendix is visualized and shows no abnormality. No free air or significant free fluid is evident in the abdomen or pelvis. There are moderate scattered degenerative changes in spine and at the left hip. IMPRESSION: No acute abdominal or pelvic abnormality is detected. PQRS Compliance Statement: One or more of the following individualized dose reduction techniques were utilized for this examination: 1. Automated exposure control 2. Adjustment of the mA and/or kV according to patient size 3. Use of iterative reconstruction technique
== END | disposition home or self-care (01) ==
LOC: CT 13:20
PROVIDERS: ATTEND Family Medicine
DX: N40.0 Benign prostatic hyperplasia without lower urinary tract symptoms (principal); R14.0 Abdominal distension (gaseous); Z96.641 Presence of right artificial hip joint
CPT/HCPCS: 74177; Q9966; Q9967

== ENCOUNTER 2018-12-29 17:25 | Emergency (ER) | payer BC ==
[~2018-12-29] VITALS: Ht 182.9 cm; Wt 87.5 kg
[~2018-12-29 17:25] MED LIST changes: -IOHEXOL 240 MG/ML 50ML VIAL. PO ONE; -IOHEXOL 300 MG/ML 100ML VIAL. IV ONE; +METF500T16 PO; -METF500T4 PO; +OMEP20CA10 PO; -OMEP20CA9 PO
[2018-12-29] MEDS ORDERED: ASPIRIN 325 MG TABLET PO ONE (18:00)
[2018-12-29] MEDS ORDERED: MORPHINE SULFATE 4 MG/ML VIAL. IV/SQ PRN (18:00)
--- NOTE | 2018-12-29 18:03 | RAD ---
Exam: Chest one view INDICATION: Shortness of breath TECHNIQUE: Frontal view of the chest Comparisons: None FINDINGS: The cardiomediastinal silhouette and pulmonary vessels are within normal limits. The lung and pleural spaces are clear. IMPRESSION: No acute cardiopulmonary process. Electronically signed by: Kimberly Montenegro MD (12/29/2018 6:00 PM) [facility]
[2018-12-29 18:13] LABS: BASO % 0 % (0-3); EOS # 0.2 x10^3/uL (0.0-0.7); EOS % 4 % (0-3); HEMATOCRIT 44.2 % (39.0-53.0); HEMOGLOBIN 14.8 g/dL (13.0-17.5); LYMPH # 1.5 x10^3/uL (1.0-4.8); LYMPH % 34 % (24-48); MEAN CORPUSCULAR HEMOGLOBIN 30 pg (25-35); MEAN CORPUSCULAR HGB CONC 34 g/dL (31-37); MEAN CORPUSCULAR VOLUME 91 fL (79-100); MONO # 0.4 x10^3/uL (0.0-1.1); MONO % 10 % (0-9); NEUT # 2.2 x10^3/uL (1.8-7.7); NEUT % 52 % (31-73); PLATELET COUNT 162 x10^3/uL (140-400); RED BLOOD COUNT 4.89 x10^6/uL (4.30-5.70); RED CELL DISTRIBUTION WIDTH 14.1 % (11.5-14.5); WHITE BLOOD COUNT 4.3 x10^3/uL (4.0-11.0)
[2018-12-29 18:21] LABS: PROTHROMBIN TIME PATIENT 12.1 SEC (11.7-14.0)
[2018-12-29 18:24] LABS: D-DIMER 0.48 ug/mlFEU (0.00-0.50)
[2018-12-29 19:13] LABS: CALCIUM 9.2 mg/dL (8.5-10.1); CREATININE 1.3 mg/dL (0.7-1.3); GFR 55.1; POTASSIUM 3.7 mmol/L (3.5-5.1)
--- NOTE | 2018-12-29 19:13 | PHYS DOC ---
Past Medical History Past Medical History: Diabetes-Type II, Hypertension (GAY MISHRA APRN) Past Surgical History: Hip Replacement, Other Additional Past Surgical Histo: sweat gland removed from neck, hernia (GAY MISHRA APRN) Alcohol Use: Occasionally Additional Information: EVERY OTHER DAY/WINE, DRINKS [employer] A COUPLE TIMES A WEEK. Drug Use: None (GAY MISHRA APRN) Adult General Chief Complaint Chief Complaint: SHORTNESS OF BREATH HPI HPI Patient is a 68 year old male with history of diabetes, hypertension, who presents to the ED today to be evaluated for shortness of breath that lasted for 3 minutes and abnormal EKG. Patient states the shortness of breath began after he crawled into a shipping container. He states he went to be evaluated by the PCP and they noted his EKG was abnormal. He was sent to the ED to be evaluated. Patient denies any chest pain, shortness of breath. Denies any other symptoms apart from the ones mentioned above. also reports patient has been working outside for extended hours in the last 2 weeks. (GAY MISHRA APRN) Review of Systems Review of Systems Constitutional: Denies fever or chills [] Eyes: Denies change in visual acuity, redness, or eye pain [] HENT: Denies nasal congestion or sore throat [] Respiratory: Reports shortness of breath, denies coughing Cardiovascular: No additional information not addressed in HPI [] GI: Denies abdominal pain, nausea, vomiting, bloody stools or diarrhea [] : Denies dysuria or hematuria [] Musculoskeletal: Denies back pain or joint pain [] Integument: Denies rash or skin lesions [] Neurologic: Denies headache, focal weakness or sensory changes [] All other systems were reviewed and found to be within normal limits, except as documented in this note. (GAY MISHRA APRN) Current Medications Current Medications Current Medications Medications (Trade) Dose Ordered Sig/Noah Start Time Stop Time Status Last Admin Dose Admin Aspirin (Jomar Aspirin) 325 mg 1X ONCE 12/29/18 18:00 12/29/18 18:01 DC 12/29/18 18:21 325 MG Morphine Sulfate (Morphine Sulfate) 4 mg PRN Q15MIN PRN 12/29/18 18:00 12/29/18 20:07 DC (NELL SAL MD) Allergies Allergies Allergies Coded Allergies Type Severity Reaction Last Updated Verified No Known Drug Allergies 03/12/14 No (NELL SAL MD) Physical Exam Physical Exam Constitutional: Well developed, well nourished, no acute distress, non-toxic appearance. [] HENT: Normocephalic, atraumatic, bilateral external ears normal, oropharynx moist, no oral exudates, nose normal. [] Eyes: PERRLA, EOMI, conjunctiva normal, no discharge. [] Neck: Normal range of motion, no tenderness, supple, no stridor. [] Cardiovascular:Heart rate regular rhythm, no murmur [] Lungs & Thorax: Bilateral breath sounds clear to auscultation [] Abdomen: Bowel sounds normal, soft, no tenderness, no masses, no pulsatile masses. [] Skin: Warm, dry, no erythema, no rash. [] Back: No tenderness, no CVA tenderness. [] Extremities: No tenderness, no cyanosis, no clubbing, ROM intact, no edema. [] Neurologic: Alert and oriented X 3, normal motor function, normal sensory function, no focal deficits noted. [] Psychologic: Affect normal, judgement normal, mood normal. [] (GAY MISHRA APRN) Current Patient Data Vital Signs Vital Signs Date Time Temp Pulse Resp B/P (MAP) Pulse Ox O2 Delivery O2 Flow Rate FiO2 12/29/18 19:58 80 15 156/96 (116) 100 Room Air 12/29/18 17:37 97.9 97.9 (NELL SAL MD) Lab Values Laboratory Tests Test 12/29/18 18:05 12/29/18 18:25 White Blood Count 4.3 x10^3/uL (4.0-11.0) Red Blood Count 4.89 x10^6/uL (4.30-5.70) Hemoglobin 14.8 g/dL (13.0-17.5) Hematocrit 44.2 % (39.0-53.0) Mean Corpuscular Volume 91 fL (79-100) Mean Corpuscular Hemoglobin 30 pg (25-35) Mean Corpuscular Hemoglobin Concent 34 g/dL (31-37) Red Cell Distribution Width 14.1 % (11.5-14.5) Platelet Count 162 x10^3/uL (140-400) Neutrophils (%) (Auto) 52 % (31-73) Lymphocytes (%) (Auto) 34 % (24-48) Monocytes (%) (Auto) 10 % (0-9) H Eosinophils (%) (Auto) 4 % (0-3) H Basophils (%) (Auto) 0 % (0-3) Neutrophils # (Auto) 2.2 x10^3/uL (1.8-7.7) Lymphocytes # (Auto) 1.5 x10^3/uL (1.0-4.8) Monocytes # (Auto) 0.4 x10^3/uL (0.0-1.1) Eosinophils # (Auto) 0.2 x10^3/uL (0.0-0.7) Basophils # (Auto) 0.0 x10^3/uL (0.0-0.2) Prothrombin Time 12.1 SEC (11.7-14.0) Prothrombin Time INR 0.9 (0.8-1.1) D-Dimer (Samantha) 0.48 ug/mlFEU (0.00-0.50) Sodium Level 144 mmol/L (136-145) Potassium Level 3.7 mmol/L (3.5-5.1) Chloride Level 106 mmol/L (98-107) Carbon Dioxide Level 30 mmol/L (21-32) Anion Gap 8 (6-14) Blood Urea Nitrogen 22 mg/dL (8-26) Creatinine 1.3 mg/dL (0.7-1.3) Estimated GFR (Cockcroft-Gault) 55.1 BUN/Creatinine Ratio 17 (6-20) Glucose Level 123 mg/dL (70-99) H Calcium Level 9.2 mg/dL (8.5-10.1) Magnesium Level 2.0 mg/dL (1.8-2.4) Total Bilirubin 0.4 mg/dL (0.2-1.0) Aspartate Amino Transferase (AST) 21 U/L (15-37) Alanine Aminotransferase (ALT) 26 U/L (16-63) Alkaline Phosphatase 49 U/L (46-116) Creatine Kinase 237 U/L (39-308) Creatine Kinase MB (Mass) 2.7 ng/mL (0.0-3.6) Creatine Kinase MB Relative Index 1.1 % (0-4) Troponin I Quantitative < 0.017 ng/mL (0.000-0.055) QH-Rxf-C-Type Natriuretic Peptide 42 pg/mL (0-124) Total Protein 6.8 g/dL (6.4-8.2) Albumin 3.5 g/dL (3.4-5.0) Albumin/Globulin Ratio 1.1 (1.0-1.7) Thyroid Stimulating Hormone (TSH) 1.325 uIU/mL (0.358-3.74) Laboratory Tests 12/29/18 18:05 Laboratory Tests 12/29/18 18:25 (NELL SAL MD) EKG EKG [address] Miller sinus rhythm ST elevations noted on leads I, aVL and II no T changes. EKG similar to the one done August 2016 (GAY MISHRA APRN) Radiology/Procedures Radiology/Procedures PROCEDURE: PORTABLE CHEST 1V Exam: Chest one view INDICATION: Shortness of breath TECHNIQUE: Frontal view of the chest Comparisons: None FINDINGS: The cardiomediastinal silhouette and pulmonary vessels are within normal limits. The lung and pleural spaces are clear. IMPRESSION: No acute cardiopulmonary process. Electronically signed by: Kimberly Pool MD (12/29/2018 6:00 PM) [facility] DICTATED and SIGNED BY: KIMBERLY POOL MD DATE: 12/29/18 1800 (GAY MISHRA APRN) Course & Med Decision Making Course & Med Decision Making Pertinent Labs and Imaging studies reviewed. (See chart for details) This is a 68-year-old male patient who presents to the ED today to be evaluated for an episode of shortness of breath that lasted for 3 minutes that began after he crawled into a shipping container, patient denies any chest pain. Patient was evaluated by the PCP, was sent to the ED for abnormal EKG. Today's EKG was compared to a previous EKG done 2016 there is no acute changes. CBC, CMP, troponin-no acute findings. D-dimer is normal. Chest x-rays negative. When i revaluated patient O2 sats 100% on room air, blood pressures in the 140s over low 90s. Patient is afebrile. Heart rates in the 80s. He is in no distress. Spoke with content engineer for Dr. De Los Santos. Patient was discharged to home. Follow-up with Dr. De Los Santos and cane cutter in the course of this week. Advised patient to avoid being outside for extended hours especially in an air conditioned environment. (GAY MISHRA APRN) Course & Med Decision Making Staff Physician Addendum: I was working in the ER during the course of this patient's visit. I was available for consultation as needed, but I was not directly involved in the care of this patient. (NELL SAL MD) Dragon Disclaimer Dragon Disclaimer This electronic medical record was generated, in whole or in part, using a voice recognition dictation system. (GAY MISHRA APRN) Departure Departure Impression: Primary Impression: Abnormal EKG Additional Impression: Shortness of breath Disposition: 01 HOME, SELF-CARE Condition: STABLE Referrals: Murali DE LOS SANTOS MD (PCP) Follow-up in the course of this week SIGIFREDO TOVAR MD follow up this week Patient Instructions: Shortness of Breath, Brlw-nu-Iumq Additional Instructions: You were evaluated in the emergency room for shortness of breath and abnormal EKG. Please follow-up with the cane cutter and the primary care doctor in the course of this week. Avoid being outside in the heat for extended hours. Problem Qualifiers GAY MISHRA APRN Dec 29, 2018 19:13 NELL SAL MD Dec 31, 2018 00:45
[2018-12-29 19:19] LABS: ALBUMIN 3.5 g/dL (3.4-5.0); ALBUMIN/GLOBULIN RATIO 1.1 (1.0-1.7); TOTAL BILIRUBIN 0.4 mg/dL (0.2-1.0); TOTAL PROTEIN 6.8 g/dL (6.4-8.2)
[2018-12-29 19:58] VITALS: BP 156/96
--- NOTE | 2018-12-30 07:01 | EKG ---
[facility] [address] [place] [address] Test Date: 2018-12-29 Test Time: 17:45:15 Pat Name: PHIL BRAY Department: Room: Gender: M Management Consulting: : 1950 Requested By: GAY MISHRA Order Number: [id number] Reading MD: Measurements Intervals [place] Rate: 87 P: -8 MD: 260 QRS: -4 QRSD: 78 T: 23 QT: 352 QTc: 424 Interpretive Statements SINUS RHYTHM PROLONGED MD INTERVAL LEFTWARD AXIS ST & T ABNORMALITY, CONSIDER RECENT HIGH LATERAL MYOCARDIAL OR PERICARDIAL DAMAGE ABNORMAL ECG No previous ECG available for comparison
== END 2018-12-29 20:04 | disposition home or self-care (01) ==
LOC: ER 17:25
DX: R06.02 Shortness of breath (principal); R94.31 Abnormal electrocardiogram [ECG] [EKG]; I10 Essential (primary) hypertension; E11.9 Type 2 diabetes mellitus without complications
CPT/HCPCS: 36415; 71045; 80053; 82553; 83735; 83880; 84443; 84484; 85025; 85379; 85610; 93005; 99285-25

== ENCOUNTER → 2019-01-24 | Outpatient (CLI) | payer BC ==
[2018-12-29 19:58] VITALS: BP 156/96
--- NOTE | 2019-01-24 12:39 | CARD ---
MR#: [id number] Date of Study: 01/24/2019 Ordering Physician: CHANG HOYT, Referring Physician: CHANG HOYT, Tech: Cynthia Uribe KINDRA APPROVED REPORT EXAM: Two-dimensional and M-mode echocardiogram with Doppler and color Doppler. Other Information Quality : Good INDICATION Abnormal ECG 2D DIMENSIONS RVDd2.7 (2.9-3.5cm)Left Atrium(2D)3.0 (1.6-4.0cm) IVSd1.0 (0.7-1.1cm)Aortic Root(2D)2.8 (2.0-3.7cm) LVDd4.1 (3.9-5.9cm)LVOT Diameter2.0 (1.8-2.4cm) PWd0.9 (0.7-1.1cm)LVDs2.7 (2.5-4.0cm) FS (%) 30.0 %SV48.3 ml LVEF(%)60.0 (>50%) Aortic Valve AoV Peak Nicholas.143.0cm/sAoV VTI22.0cm AO Peak GR.8.2mmHgLVOT Peak Nicholas.107.8cm/s LVOT VTI 20.62cmAO Mean GR.4mmHg CHERYL (VMAX)2.13hk5CRW (VTI)2.90cm2 Mitral Valve MV E Lsvkbwhi61.6cm/sMV DECEL XOLK342gu MV A Xoppmroy78.2cm/sMV VBL54yg E/A Ratio0.9MVA (PHT)3.48cm2 TDI E/Lateral E'7.5E/Medial E'12.6 Tricuspid Valve TR P. Fjjjzszz299qb/sRAP WPFONUHM8qjZy TR Peak Gr.33ocPtIKSK56abFt Pulmonary Vein S1 Gddzanok76.7cm/sD2 Acgewomy49.0cm/s LEFT VENTRICLE The left ventricle is normal size. There is normal left ventricular wall thickness. The left ventricu lar systolic function is normal and the ejection fraction is within normal range. The Ejection Fracti on is 55-60%. There is normal LV segmental wall motion. Transmitral Doppler flow pattern is Grade I-a bnormal relaxation pattern. RIGHT VENTRICLE The right ventricle is normal size. The right ventricular systolic function is normal. ATRIA The left atrium size is normal. The right atrium size is normal. The interatrial septum is intact wit h no evidence for an atrial septal defect or patent foramen ovale as noted on 2-D or Doppler imaging. AORTIC VALVE The aortic valve is calcified but opens well. Doppler and Color Flow revealed no significant aortic r egurgitation. There is no significant aortic valvular stenosis. MITRAL VALVE The mitral valve is calcified but opens well. There is no evidence of mitral valve prolapse. There is no mitral valve stenosis. Doppler and Color-flow revealed trace mitral regurgitation. TRICUSPID VALVE The tricuspid valve is normal in structure and function. Doppler and Color Flow revealed trace tricus pid regurgitation. The PA pressure was estimated at 23 mmHg. There is no tricuspid valve stenosis. PULMONIC VALVE Doppler and Color Flow revealed mild pulmonic valvular regurgitation. There is no pulmonic valvular s tenosis. GREAT VESSELS The aortic root is normal in size. The ascending aorta is normal in size. The IVC is normal in size a nd collapses >50% with inspiration. PERICARDIAL EFFUSION There is no evidence of significant pericardial effusion. Critical Notification Critical Value: No <Conclusion> The left ventricular systolic function is normal and the ejection fraction is within normal range. Th e Ejection Fraction is 55-60%. There is normal LV segmental wall motion. Signed by : Marvin Bautista, Electronically Approved : 01/24/2019 12:38:34
== END | disposition home or self-care (01) ==
LOC: ECHO 09:42
PROVIDERS: ATTEND Internal Medicine Cardiovascular Disease
DX: I08.8 Other rheumatic multiple valve diseases (principal)
CPT/HCPCS: 93306

== ENCOUNTER → 2019-01-31 | Outpatient (CLI) | payer BC ==
--- NOTE | 2019-01-31 12:54 | RAD ---
MR#: [id number] Date of Study: 01/31/2019 Ordering Physician: CHANG HOYT, Referring Physician: TRAV ARVIZU Tech: RT Daniela (R) (N) APPROVED REPORT Test Type: Exercise Stress Nurse/Tech: Maria Guadalupe Hernandes R.N. Test Indications: dyspnea Cardiac History: htn, dm Medications: see ehr Medical History: see ehr Resting ECG: SR with prolonged DC, ST elevation noted in mult leads-similar to prev ECGs Resting Heart Rate: 65 bpm Resting Blood Pressure: 142/88mmHg Pretest Chest Pain: No chest pain Nurse/Tech Notes lungs cta, heart tones regular Consent: The procedure was explained to the patient in lay terms. Informed consent was witnessed. Helder eout was entered into [employer]. History and Stress Test performed by RAVEN Denise Stress Symptoms No chest pain or symptoms. POST EXERCISE Reason for Termination: Reached target heart rate Target HR: Yes Max HR: 141 bpm 92% of Maximum Predicted HR: 153 bpm Exercise duration: 7:20 min:sec, 3 Stage Exercise capacity: 10.0METs Max Blood Pressure: 162/82mmHg Blood Pressure response to exercise: Normal blood pressure response during stress. Heart Rate response to exercise: normal Chest Pain: No. Arrhythmia: No. ST Change: No. INTERPRETATION Stress EKG Conclusion: Negative for EKG changes. Imaging Protocol IMAGE PROTOCOL: Rest Tc-99m/stress Tc-99m 1 day Rest: Stress: Viability: Radiopharm.Tc99m FznjdhlzgVx69k Sestamibi Jwcs6kNp 25.5mCi Duration 15min. 13min. Img Date 01/31/2019 01/31/2019 Inj-Img Vozm82tjf. 60min. Rest Admin Site:IV - Right AntecubitalAdministrator:RT Daniela (R)(N) Stress Admin Site: IV - Right AntecubitalAdministrator: RAVEN Denise STRESS DATA End Diast. Vol.70.0mlAv. Heart Rate81.0bpm End Syst. Vol.16.0mlCO Index BSA4.4L/min Myocardial Oxdl939.0gEject. Dwmdbtzl46.0% Stress Rates Pk. Fill Rate4.45EDV/secLVtime Pk. Fill 214.62msec Pk. Empty Rate4.93ESV/secLVtime Pk. Lhogr277.14msec 1/3 Pk. Fill1.12EDV/sec Stress Scores Regional WT0.00Summed WT0.00 Regional WM0.00Summed WM1.00 The rest and stress images show normal perfusion, normal contraction and thickening. LV Perf. Quant 17 Seg. SSS0.00 17 Seg. SRS1.00 17 Seg. SDS0.00 Stress Defect Extent (% LAD)0.00Rest Defect Extent (% LAD)2.50Rev. Defect Extent (% LAD)0.00 Stress Defect Extent (% LCX) 0.00Rest Defect Extent (% LCX)21.30Rev. Defect Extent (% LCX)0.00 Stress Defect Extent (% RCA)0.00Rest Defect Extent (% RCA)0.00Rev. Defect Extent (% RCA)0.00 Stress Defect Extent (% KEO)0.00Rest Defect Extent (% KEO)4.80Rev. Defect Extent (% KEO)0.00 Other Information Quality:Good Risk Assessment: Low Risk Conclusion 1. No evidence of EKG changes with stress testing. 2. Normal perfusion at stress/rest. 3. Low risk study. 4. EF > 60%. Signed by : Marvin Bautista, Electronically Approved : 01/31/2019 12:54:31
== END | disposition home or self-care (01) ==
LOC: NM 09:03
PROVIDERS: ATTEND Internal Medicine Cardiovascular Disease
DX: R74.8 Abnormal levels of other serum enzymes (principal); R06.00 Dyspnea, unspecified; E11.9 Type 2 diabetes mellitus without complications; I10 Essential (primary) hypertension
CPT/HCPCS: 78452; 93017; A9500

== ENCOUNTER → 2020-04-17 | Outpatient (CLI) | payer BC, OTHER ==
[~2020-04-17] MED LIST changes: +ASPI-630 PO; +ATOR10TA60 PO; +CHOL500050 PO; +HYLAND LEG CRAMP; -OMEP20CA10 PO; +OMEP20CA16 PO; +TAMS0.4C97 PO; +neuriva
== END ==
LOC: LAB 07:52
PROVIDERS: ATTEND Internal Medicine Gastroenterology
DX: Z01.812 Encounter for preprocedural laboratory examination (principal); Z20.828 Contact with and (suspected) exposure to other viral communicable diseases
CPT/HCPCS: U0003

== ENCOUNTER → 2020-04-19 | Day surgery (SDC) | payer BC, OTHER ==
[~2020-04-19] MED LIST changes: +IV RINGERS,LACTATED 1000ML 1,000 ML IV SCH; +LIDOCAINE 2% PF 5 ML VIAL. ONE; +PROPOFOL 10 MG/ML (20ML) VIAL. IV ONE
--- NOTE | 2020-04-19 07:34 | CONS ---
DATE OF CONSULTATION: 04/19/2020 REFERRING PHYSICIAN: Juan Carlos De Los Santos MD REASON FOR CONSULTATION: History of colonic polyps. HISTORY OF PRESENT ILLNESS: A 69-year-old -[place] male whose past medical history is significant for Majano's, hyperlipidemia, hypertension, diabetes, BPH as well as a history of colonic polyps, is seen for interval colon exam. Bowel habits have been regular without diarrhea or constipation. There has been no melena and/or hematochezia. Last exam was in 2013. The patient otherwise has been in good health without additional complaints. PAST MEDICAL HISTORY: Hyperlipidemia, hypertension, diabetes, BPH, history of colonic polyps, history of Majano's. ALLERGIES: None. MEDICATIONS: Include aspirin, atorvastatin, vitamin D, hydrochlorothiazide, metformin, tamsulosin. FAMILY HISTORY: Significant for diabetes in multiple family members, colon polyps, myocardial infarctions. SOCIAL HISTORY: Social drinker, former smoker. PAST SURGICAL HISTORY: Joint replacement. REVIEW OF SYSTEMS: Per records. PHYSICAL EXAMINATION: GENERAL: Reveals a well-developed, well-nourished male who is alert, cooperative, in no acute distress. VITAL SIGNS: Pulse 80, respirations 15. LUNGS: Clear. CARDIOVASCULAR: Reveals an S1, S2 without S3, S4 or appreciable murmur. ABDOMEN: With a soft abdomen, normal bowel sounds, without appreciable hepatosplenomegaly. IMPRESSION: History of colonic polyps. Surveillance exam is recommended at this time. Risks and benefits of procedure including risk of hemorrhage, perforation during the operation were discussed. The patient is willing to proceed. I would like to thank Dr. D eLos Santos for allowing us to consult and participate in the patient's care. TESSA MOORE MD DR: SHAISTA/bri JOB#: [id number] / [id number]
[2020-04-19 08:08] VITALS: BP 109/70
== END | disposition home or self-care (01) ==
LOC: ENDOS 06:22
PROVIDERS: ATTEND Internal Medicine Gastroenterology
DX: Z12.11 Encounter for screening for malignant neoplasm of colon (principal); K64.0 First degree hemorrhoids; I10 Essential (primary) hypertension; E78.00 Pure hypercholesterolemia, unspecified; K21.9 Gastro-esophageal reflux disease without esophagitis; E11.9 Type 2 diabetes mellitus without complications; M19.90 Unspecified osteoarthritis, unspecified site; Z79.82 Long term (current) use of aspirin; Z86.010 Personal history of colon polyps; Z79.84 Long term (current) use of oral hypoglycemic drugs; Z79.899 Other long term (current) drug therapy; Z98.890 Other specified postprocedural states; Z87.891 Personal history of nicotine dependence; Z72.89 Other problems related to lifestyle
CPT/HCPCS: 45378; J2704

== ENCOUNTER → 2020-11-20 | Outpatient (CLI) | payer OTHER ==
[2020-04-19 08:08] VITALS: BP 109/70
[~2020-11-20] MED LIST changes: -IV RINGERS,LACTATED 1000ML 1,000 ML IV SCH; -LIDOCAINE 2% PF 5 ML VIAL. ONE; -PROPOFOL 10 MG/ML (20ML) VIAL. IV ONE
--- NOTE | 2020-11-21 08:54 | RAD ---
CT scan abdomen and pelvis without contrast 11/20/2020 CLINICAL HISTORY: Right flank pain. TECHNIQUE: Unenhanced, contiguous, 2.5 mm axial sections were obtained through the abdomen and pelvis . One or more of the following individualized dose reduction techniques were utilized for this study: 1. Automated exposure control. 2. Adjustment of the mA and/or kV according to patient size. 3. Use of iterative reconstruction technique. FINDINGS: Comparison study is dated 04/26/2017. Images through the lung bases demonstrate minimal dependent subsegmental atelectasis bilaterally. A 3 mm calcified granuloma is seen involving the left lower lobe. The liver, spleen, pancreas, adrenal glands and kidneys are within normal limits. No renal or uretera l calculus is seen. There is no evidence of obstruction of either collecting system. Atherosclerotic calcification of the abdominal aorta is seen. The abdominal aorta tapers normally. Th e gallbladder is contracted. The appendix is well-visualized and is within normal limits. Images through the pelvis demonstrate the urinary bladder distended with urine. Multiple diverticula are seen involving the sigmoid colon. No inflammatory changes are seen adjacent fat. The patient is p ost right SUSAN. No free fluid is noted. Calcifications are seen within the pelvis consistent phlebolit hs. Very mild S-shaped curvature of the thoracolumbar spine is seen. Degenerative changes are seen involv ing the lower thoracic and throughout the lumbar spine along with both hips. IMPRESSION: No acute abnormality is seen. Electronically signed by: Terrance Newton MD (11/21/2020 8:51 AM) [id number]
== END ==
LOC: CT 16:22
PROVIDERS: ATTEND Family Medicine
DX: K57.30 Diverticulosis of large intestine without perforation or abscess without bleeding (principal); K82.8 Other specified diseases of gallbladder; N32.89 Other specified disorders of bladder; J98.11 Atelectasis; J84.10 Pulmonary fibrosis, unspecified; I70.0 Atherosclerosis of aorta; M43.8X5 Other specified deforming dorsopathies, thoracolumbar region; Z96.641 Presence of right artificial hip joint
CPT/HCPCS: 74176

== ENCOUNTER 2020-12-31 19:26 | Emergency (ER) | payer OTHER ==
[~2020-12-31] VITALS: Ht 182.9 cm; Wt 93.1 kg
[2020-12-31 19:41] VITALS: BP 145/90
== END 2020-12-31 20:15 | disposition left against medical advice (07) ==
LOC: ER 19:26
DX: R10.9 Unspecified abdominal pain (principal); R11.2 Nausea with vomiting, unspecified; Z53.21 Procedure and treatment not carried out due to patient leaving prior to being seen by health care provider

== ENCOUNTER 2021-01-05 21:04 | Emergency (ER) | payer OTHER ==
[~2021-01-05] VITALS: Ht 182.9 cm; Wt 100.0 kg
[2021-01-05 23:06] LABS: BASO % 1 % (0-3); EOS # 0.2 x10^3/uL (0.0-0.7); EOS % 4 % (0-3); HEMOGLOBIN 15.4 g/dL (13.0-17.5); LYMPH # 1.3 x10^3/uL (1.0-4.8); LYMPH % 32 % (24-48); MEAN CORPUSCULAR HEMOGLOBIN 30 pg (25-35); MEAN CORPUSCULAR HGB CONC 34 g/dL (31-37); MEAN CORPUSCULAR VOLUME 90 fL (79-100); MONO # 0.5 x10^3/uL (0.0-1.1); MONO % 11 % (0-9); NEUT # 2.1 x10^3/uL (1.8-7.7); NEUT % 52 % (31-73); PLATELET COUNT 149 x10^3/uL (140-400); RED BLOOD COUNT 5.11 x10^6/uL (4.30-5.70); RED CELL DISTRIBUTION WIDTH 13.3 % (11.5-14.5)
[2021-01-05 23:13] LABS: CALCIUM 9.4 mg/dL (8.5-10.1); CREATININE 1.3 mg/dL (0.7-1.3); GFR 54.7
[2021-01-05] MEDS ORDERED: LIDO:MAALOX 1:1 20 ML SINGLE DOSE. SWSW ONE (23:15)
[2021-01-05] MEDS ORDERED: FAMOTIDINE 20 MG/2 ML VIAL IVP ONE (23:15)
[2021-01-05 23:19] LABS: ALBUMIN 3.7 g/dL (3.4-5.0); TOTAL BILIRUBIN 0.4 mg/dL (0.2-1.0); TOTAL PROTEIN 7.5 g/dL (6.4-8.2)
--- NOTE | 2021-01-05 23:28 | PHYS DOC ---
Past Medical History Past Medical History: Diabetes-Type II, Hypertension Past Surgical History: Hip Replacement, Other Additional Past Surgical Histo: sweat gland removed from neck, hernia Smoking Status: Former Smoker Alcohol Use: Occasionally Drug Use: None General Adult EDM: Chief Complaint: ABDOMINAL PAIN Problems: (1) Abdominal pain HPI: HPI: 70-year-old male presents to the emergency department complaining of upper abdominal pain for the past 1 month. He reports 2 days ago his abdominal pain got worse after he ate some pancakes. He has intermittent pain for the past 1 month without any relieving or provoking factors. He notes that 6 weeks ago he had a "MRI "performed here that was unremarkable on his abdomen. (Chart review shows that this is a CT scan that was negative on 11/20/2020). The patient denies nausea, vomiting, fever, chills, chest pain, shortness of breath, urinary symptoms, cough, recent trauma, or any other complaints. Review of Systems: Review of Systems: Constitutional: Denies fever or chills. Eyes: Denies change in vision, pain. HENT: Denies congestion or sore throat. Respiratory: Denies cough or shortness of breath. Cardiovascular: Denies chest pain or edema. GI: Admits to abdominal pain, denies diarrhea, denies vomiting, denies nausea. : Denies change in urination, dysuria. Musculoskeletal: Denies extremity pain, or trauma. Skin: Denies rash, skin change. Neurologic: Denies headache, focal weakness. Psychiatric: Denies depression or anxiety. All other systems reviewed as negative except for what was mentioned in the HPI. Heart Score: C/O Chest Pain: No Family History: Family History: Noncontributory Current Medications: Current Medications Medications (Trade) Dose Ordered Sig/Noah Start Time Stop Time Status Last Admin Dose Admin Famotidine (Pepcid Vial) 20 mg 1X ONCE 01/05/21 23:15 01/05/21 23:16 DC 01/05/21 23:17 20 MG Multi-Ingredient Mouthwash/Gargle (Gi Cocktail) 20 ml 1X ONCE 01/05/21 23:15 01/05/21 23:16 DC 01/05/21 23:17 20 ML Allergies: Allergies: Allergies Coded Allergies Type Severity Reaction Last Updated Verified No Known Drug Allergies 04/19/20 No Physical Exam: PE: Constitutional: No acute distress, non-toxic appearance. HENT: Atraumatic, bilateral external ears normal, nose normal. Eyes: PERRLA, EOMI, conjunctiva normal, no discharge. Neck: Normal range of motion, supple, no stridor. Cardiovascular: Heart rate regular rhythm. 2+ radial pulses Lungs & Thorax: No respiratory distress, symmetrical expansion. Abdomen: Soft, no tenderness Skin: Warm, dry. Extremities: No tenderness, no cyanosis, ROM intact, no edema. Neurologic: Alert and oriented X 3, normal motor function, normal sensory f unction, no focal deficits noted. Non ataxic gait. GCS 15. Psychologic: Affect normal, judgment normal, mood normal. Current Patient Data: Labs: Laboratory Tests Test 01/05/21 22:50 White Blood Count 4.0 x10^3/uL (4.0-11.0) Red Blood Count 5.11 x10^6/uL (4.30-5.70) Hemoglobin 15.4 g/dL (13.0-17.5) Hematocrit 46.0 % (39.0-53.0) Mean Corpuscular Volume 90 fL (79-100) Mean Corpuscular Hemoglobin 30 pg (25-35) Mean Corpuscular Hemoglobin Concent 34 g/dL (31-37) Red Cell Distribution Width 13.3 % (11.5-14.5) Platelet Count 149 x10^3/uL (140-400) Neutrophils (%) (Auto) 52 % (31-73) Lymphocytes (%) (Auto) 32 % (24-48) Monocytes (%) (Auto) 11 % (0-9) H Eosinophils (%) (Auto) 4 % (0-3) H Basophils (%) (Auto) 1 % (0-3) Neutrophils # (Auto) 2.1 x10^3/uL (1.8-7.7) Lymphocytes # (Auto) 1.3 x10^3/uL (1.0-4.8) Monocytes # (Auto) 0.5 x10^3/uL (0.0-1.1) Eosinophils # (Auto) 0.2 x10^3/uL (0.0-0.7) Basophils # (Auto) 0.0 x10^3/uL (0.0-0.2) Sodium Level 139 mmol/L (136-145) Potassium Level 4.0 mmol/L (3.5-5.1) Chloride Level 104 mmol/L (98-107) Carbon Dioxide Level 29 mmol/L (21-32) Anion Gap 6 (6-14) Blood Urea Nitrogen 17 mg/dL (8-26) Creatinine 1.3 mg/dL (0.7-1.3) Estimated GFR (Cockcroft-Gault) 54.7 BUN/Creatinine Ratio 13 (6-20) Glucose Level 93 mg/dL (70-99) Calcium Level 9.4 mg/dL (8.5-10.1) Total Bilirubin 0.4 mg/dL (0.2-1.0) Aspartate Amino Transferase (AST) 88 U/L (15-37) H Alanine Aminotransferase (ALT) 194 U/L (16-63) H Alkaline Phosphatase 76 U/L (46-116) Total Protein 7.5 g/dL (6.4-8.2) Albumin 3.7 g/dL (3.4-5.0) Albumin/Globulin Ratio 1.0 (1.0-1.7) Lipase 151 U/L (73-393) Laboratory Tests 01/05/21 22:50 Laboratory Tests 01/05/21 22:50 Vital Signs: Vital Signs Date Time Temp Pulse Resp B/P (MAP) Pulse Ox O2 Delivery O2 Flow Rate FiO2 01/05/21 22:46 65 18 143/80 (101) 97 Room Air 01/05/21 22:38 97.8 97.8 Radiology/Procedures: Radiology/Procedures: PROCEDURE: CT ABD PELV W/ IV CONTRST ONLY Study: CT abdomen/pelvis with intravenous contrast Indication: Abdominal pain. Comparison: 11/20/2020 Technique: Helical CT imaging performed of the abdomen and pelvis after the intravenous administration of 60 cc Omnipaque 300 contrast. Sagittal and coronal reformats were obtained. One or more of the following individualized dose reduction techniques were utilized for this examination: 1. Automated exposure control 2. Adjustment of the mA and/or kV according to patient size 3. Use of iterative reconstruction technique. Findings: Calcific coronary artery disease. No newly seen abnormality of the lower lungs. No focal hepatic parenchymal abnormality. The gallbladder, biliary tree, pancreas, spleen and adrenal glands are within normal limits. Small cystic focus at the medial left kidney on image 37 series 4 is unchanged. No hydronephrosis. The bladder appears to be unremarkable noting streak artifact from a total right hip arthroplasty construct. Unchanged prostate. No acute abnormality of the colon or appendix. Mild volume colonic stool burden. Nonobstructed small bowel. Unremarkable stomach. Mainly distal aortic and common iliac artery calcified and noncalcified atheromatous plaque. No lymphadenopathy. No free fluid or pneumoperitoneum. Status post total right hip arthroplasty. Multifocal degenerative changes. Osseous neural foraminal stenosis greatest bilaterally at L3-L4 through L5-S1. Scattered disc bulges with incomplete characterization of central canal stenosis. Left hip arthrosis is moderate. Impression: 1. No acute abnormality identified throughout the abdomen or pelvis. 2. Multiple chronic findings described in the body of the report. Electronically signed by: LINUS BADILLO MD (01/06/2021 12:22 AM) Course & Med Decision Making: Course & Med Decision Making Objective work-up is unremarkable, patient's exam is unremarkable as well. Patient was advised to take MiraLAX at home for constipation avoid foods that trigger his abdominal pain and follow-up with his primary care provider Departure Departure Impression: Primary Impression: Abdominal pain Disposition: 01 HOME / SELF CARE / HOMELESS Condition: GOOD Referrals: Murali GUZMAN MD (PCP) Patient Instructions: Abdominal Pain, [id number] Additional Instructions: You were seen in the emergency department for abdominal pain. Your tests did not show any obvious acute cause of your symptoms and your physical exam was non concerning for a dangerous disease process at this time. This however can change early in a disease course. You must return to the ED if you develop any new or worrisome symptoms for another exam. - Make sure to drink plenty of fluids at home - You may take a gentle laxative such as Miralax (over the counter) for bowel comfort. - Avoid drinking alcohol while you are having abdominal pain as this may worsen symptoms. - Return to the ER if you are not able to tolerate water and/or a normal diet, have increased pain or a change in character of your pain, develop a fever (>100.3 F), have nausea, vomiting and/or diarrhea that is unable to be treated at home, pass out, and/or you are not able to perform you normal daily activity. NELL GRADY DO Jan 05, 2021 23:27
[2021-01-05] MEDS ORDERED: CONTRAST GIVEN. MC PRN (23:45)
[2021-01-05] MEDS ORDERED: IOHEXOL 300 MG/ML 100ML VIAL. IV ONE (23:45)
--- NOTE | 2021-01-06 00:25 | RAD ---
Study: CT abdomen/pelvis with intravenous contrast Indication: Abdominal pain. Comparison: 11/20/2020 Technique: Helical CT imaging performed of the abdomen and pelvis after the intravenous administratio n of 60 cc Omnipaque 300 contrast. Sagittal and coronal reformats were obtained. One or more of the following individualized dose reduction techniques were utilized for this examinat ion: 1. Automated exposure control 2. Adjustment of the mA and/or kV according to patient size 3. Use of iterative reconstruction technique. Findings: Calcific coronary artery disease. No newly seen abnormality of the lower lungs. No focal hepatic parenchymal abnormality. The gallbladder, biliary tree, pancreas, spleen and adrenal glands are within normal limits. Small cystic focus at the medial left kidney on image 37 series 4 i s unchanged. No hydronephrosis. The bladder appears to be unremarkable noting streak artifact from a total right hip arthroplasty construct. Unchanged prostate. No acute abnormality of the colon or appendix. Mild volume colonic stool burden. Nonobstructed small bowel. Unremarkable stomach. Mainly distal aortic and common iliac artery calcified and noncalcified atheromatous plaque. No lymph adenopathy. No free fluid or pneumoperitoneum. Status post total right hip arthroplasty. Multifocal degenerative changes. Osseous neural foraminal s tenosis greatest bilaterally at L3-L4 through L5-S1. Scattered disc bulges with incomplete characteri zation of central canal stenosis. Left hip arthrosis is moderate. Impression: 1. No acute abnormality identified throughout the abdomen or pelvis. 2. Multiple chronic findings described in the body of the report. Electronically signed by: LINUS BADILLO MD (01/06/2021 12:22 AM) [facility]
[2021-01-06 00:33] VITALS: BP 134/87
== END 2021-01-06 01:02 | disposition home or self-care (01) ==
LOC: ER 21:04
DX: R10.10 Upper abdominal pain, unspecified (principal); E11.9 Type 2 diabetes mellitus without complications; I10 Essential (primary) hypertension; Z87.891 Personal history of nicotine dependence; Z98.890 Other specified postprocedural states
CPT/HCPCS: 36415; 74177; 80053; 83690; 85025; 96374; 99285; J3490; Q9967

== ENCOUNTER → 2021-05-02 | Outpatient (CLI) | payer OTHER ==
--- NOTE | 2021-05-02 09:17 | RAD ---
EXAM: ULTRASOUND ABDOMEN COMPLETE CLINICAL HISTORY: Reason: GENERALIZED ABDOMINAL PAIN / Spl. Instructions: / History: COMPARISON: None available. TECHNIQUE: Ultrasound of the upper abdomen was performed. FINDINGS: Pancreas is mostly obscured by overlying bowel gas. The liver measures 16.3 cm in length in the right mid clavicular line. Borderline increased hepatic echogenicity relative to the right kidney consist ent with hepatic steatosis.. There are no focal liver lesions. Flow seen within the portal veins. Small shadowing gallstones or sludge.. There is no wall thickening or pericholecystic fluid. There is no pain with direct transducer pressure over the gallbladder. The common bile duct measures 0.5 cm. The spleen measures 9.9 cm. The right kidney measures 10.1 cm in bipolar length. Normal renal cortical echotexture and thickness. No focal renal lesion, hydronephrosis or shadowing renal calculus. The left kidney measures 10.4 cm in bipolar length. Normal renal cortical echotexture and thickness. No focal renal lesion, hydronephrosis or shadowing renal calculus. Visualized portions of the abdominal aorta and inferior vena cava are unremarkable. There is no free fluid in the upper abdomen. IMPRESSION: 1. Small shadowing gallstones and sludge without sonographic evidence for acute cholecystitis. 2. Borderline increased hepatic echogenicity relative to the right kidney consistent with mild fatty liver. Electronically signed by: Jose A Garcia MD (05/02/2021 9:15 AM) [id number]
== END ==
LOC: US 06:38
PROVIDERS: ATTEND Family Medicine
DX: K80.20 Calculus of gallbladder without cholecystitis without obstruction (principal)
CPT/HCPCS: 76700